=== PATIENT | female | born 1990 ===

== ENCOUNTER 2020-05-05 17:26 | Inpatient (IN) | payer OTHER ==
[2020-05-05] MEDS ORDERED: Carboprost Tromethamine 250 MCG/1 ML Amp IM PRN (19:08)
[2020-05-05] MEDS ORDERED: Famotidine 20 MG Tab PO PRN (19:08)
[2020-05-05] MEDS ORDERED: hydrOXYzine HCl 25 MG Tab PO PRN (19:08)
[2020-05-05] MEDS ORDERED: Sodium Chloride 0.9% 2.5 ML Syringe FLUSH PRN (19:08)
[2020-05-05] MEDS ORDERED: Methylergonovine 0.2 MG/1 ML Amp IM PRN (19:08)
[2020-05-05] MEDS ORDERED: Tranexamic Acid 1,000 MG in Sodium Chloride 0.9% 100 ML IV PRN (19:08)
[2020-05-05] MEDS ORDERED: Sodium Chloride 0.9% 10 ML SDV IV PRN (19:08)
[2020-05-05] MEDS ORDERED: Misoprostol 25 MCG (1/4 of 100 MCG) Tab VAG PRN ×2 (19:08)
[2020-05-05] MEDS ORDERED: Butorphanol 1 MG/ML SDV IVPUSH PRN (19:08)
[2020-05-05] MEDS ORDERED: Terbutaline 1 MG/ML SDV SUBCUT PRN (19:08)
[2020-05-05] MEDS ORDERED: Ondansetron 4 MG/2 ML SDV IVPUSH PRN (19:08)
[2020-05-05] MEDS ORDERED: Water For Irrigation,Sterile 1,000 ML Container IRR PRN (19:08)
[2020-05-05] MEDS ORDERED: Lidocaine 1% 50 ML MDV INJECT PRN (19:08)
[2020-05-05] MEDS ORDERED: Nalbuphine 10 MG/1 ML Vial IVPUSH PRN (19:08)
[2020-05-05] MEDS ORDERED: Sodium Chloride 0.9% 10 ML Syringe FLUSH PRN (19:08)
[2020-05-05] MEDS ORDERED: Misoprostol 200 MCG Tab PO PRN (19:08)
[2020-05-05] MEDS ORDERED: Misoprostol 25 MCG (1/4 of 100 MCG) Tab PO PRN ×2 (19:08)
[2020-05-05] MEDS ORDERED: Acetaminophen 325 MG Tab PO PRN (19:08)
[2020-05-05] MEDS ORDERED: Lactated Ringers 1,000 ML IV SCH (19:15)
[2020-05-05] MEDS ORDERED: Oxytocin/0.9 % Sodium Chloride 30 UNIT/500 ML BAG IV SCH ×2 (19:15)
--- NOTE | 2020-05-05 19:24 | PCM.LDHP ---
L&D History of Present Illness - General Date of Service: 05/05/20 Admit Problem/Dx: Patient Status Order with Admit Dx/Problem 05/05/20 17:36 Patient Status [ADT] Routine 05/05/20 19:09 Patient Status [ADT] Routine Admission Diagnosis/Problem Admission Diagnosis/Problem 05/05/20 19:19 30yo EDC 05/17/2020 38 2/7wks A+, RI, GBS neg. PIH with elevated BP and proteinuria. Source of Information: Patient History Limitations: Reports: No Limitations - History of Present Illness Improves with: Reports: None Worsens with: Reports: None Associated Symptoms: Reports: N - Related Data Allergies/Adverse Reactions: Allergies Allergy/AdvReac Type Severity Reaction Status Date / Time No Known Allergies Allergy Verified 04/27/20 15:33 Home Medications: Home Meds Acyclovir 400 mg PO DAILY 05/05/20 [History] Vits #93/Iron Fum/FA [ Formula Tablet] 1 each PO DAILY 05/05/20 [History] H&P Review of Systems - Review of Systems: Review Of Systems: See Below General: Reports: No Symptoms HEENT: Reports: No Symptoms Pulmonary: Reports: No Symptoms Cardiovascular: Reports: No Symptoms Gastrointestinal: Reports: No Symptoms Genitourinary: Reports: No Symptoms Musculoskeletal: Reports: No Symptoms Skin: Reports: No Symptoms Psychiatric: Reports: No Symptoms Neurological: Reports: No Symptoms Hematologic/Lymphatic: Reports: No Symptoms Immunologic: Reports: No Symptoms L&D Exam - Exam Exam: See Below - Vital Signs Weight: 91.626 kg - OB Specific Contraction Intensity: Mild Movement: Active Heart Tones: Present Heart Tones per Min: 140 Heart Rate (FHR) Variability: Moderate (6-25 bmp) Presentation: Vertex Estimated Weight: 3200 - Huerta Score Huerta Score Cervix Position: Posterior Huerta Score Consistency: Medium Huerta Score Effacement: 31-50% Huerta Score Dilation: Closed Huerta Score Infant's Station: -2 Huerta Score Total: 3 - Exam General: Alert, Oriented, Cooperative, Mild Distress HEENT: Hearing Intact Lungs: Clear to Auscultation, Normal Respiratory Effort. No: Decreased Breath Sounds Cardiovascular: Regular Rate, Regular Rhythm. No: Normal S1, Normal S2 GI/Abdominal Exam: Soft, Non-Tender Rectal Exam: Deferred Genitourinary: Normal external exam (Inspection for HSV and no leisions noted.). No: Cervical fluid, Vaginal bleeding Back Exam: Normal Inspection, Full Range of Motion Extremities: Normal Inspection, Normal Range of Motion, Non-Tender, Pedal Edema Skin: Warm, Dry, Intact Neurological: Cranial Nerves Intact, Reflexes Equal Bilateral, Strength Equal Bilateral, Normal Gait, Normal Speech, Normal Tone, Sensation Intact Psychiatric: Alert, Normal Affect, Normal Mood - Problem List (1) Supervision of normal IUP (intrauterine ) in multigravida SNOMED Code(s): 808187281, 771786028, 787728279 ICD Code: Z34.80 - ENCOUNTER FOR SUPRVSN OF NORMAL , UNSP TRIMESTER Status: Acute Priority: High Current Visit: Yes Qualifiers: Trimester: third trimester Qualified Code(s): Z34.83 - Encounter for supervision of other normal , third trimester (2) PIH ( induced hypertension), antepartum SNOMED Code(s): 78622586, 58696552 ICD Code: O13.9 - GESTATIONAL HTN W/O SIGNIFICANT PROTEINURIA, UNSP TRIMESTER Status: Acute Priority: High Current Visit: Yes Problem List Initiated/Reviewed/Updated: Yes Orders Last 24hrs: Active Orders 24 hr Category Date Time Status Patient Status [ADT] Routine ADT 05/05/20 17:36 Active Patient Status [ADT] Routine ADT 05/05/20 19:09 Ordered Bedrest Bathroom Privileges [RC] ASDIRECTED Care 05/05/20 19:09 Ordered Communication Order [RC] ASDIRECTED Care 05/05/20 19:09 Ordered Communication Order [RC] ASDIRECTED Care 05/05/20 19:09 Ordered Communication Order [RC] ASDIRECTED Care 05/05/20 19:09 Ordered Heart Tones [RC] INTERMITTENT Care 05/05/20 19:09 Ordered Non Stress Test [RC] PER UNIT ROUTINE Care 05/05/20 17:36 Active Non Stress Test [RC] PER UNIT ROUTINE Care 05/05/20 19:09 Ordered May Shower [RC] ASDIRECTED Care 05/05/20 19:09 Ordered Notify Provider [RC] PRN Care 05/05/20 19:09 Ordered Notify Provider [RC] PRN Care 05/05/20 19:09 Ordered Notify Provider [RC] PRN Care 05/05/20 19:09 Ordered Notify Provider [RC] STAT Care 05/05/20 19:09 Ordered Oxygen Therapy [RC] ASDIRECTED Care 05/05/20 19:09 Ordered Peripheral IV Care [RC] PRN Care 05/05/20 19:08 Ordered Up ad Hemalatha [RC] ASDIRECTED Care 05/05/20 17:36 Active Up ad Hemalatha [RC] ASDIRECTED Care 05/05/20 19:09 Ordered Vaginal Exam [RC] PRN Care 05/05/20 19:09 Ordered Vaginal Exam [RC] PRN Care 05/05/20 19:09 Ordered Vital Signs [RC] PER UNIT ROUTINE Care 05/05/20 17:36 Active Vital Signs [RC] PER UNIT ROUTINE Care 05/05/20 19:09 Ordered Vital Signs [RC] PER UNIT ROUTINE Care 05/05/20 19:09 Ordered Regular Diet [DIET] Diet 05/06/20 Breakfast Ordered CBC W/O DIFF,HEMOGRAM [HEME] Routine Lab 05/05/20 19:09 Ordered RPR (SYPHILIS SERO) W/ RFLX [REF] Routine Lab 05/05/20 19:09 Ordered TYPE AND SCREEN [BBK] Routine Lab 05/05/20 19:09 Ordered Acetaminophen [Tylenol] Med 05/05/20 19:08 Ordered 650 mg PO Q4H PRN Butorphanol [Stadol] Med 05/05/20 19:08 Ordered 1 mg IVPUSH Q1H PRN Carboprost Tromethamine [Hemabate DS] Med 05/05/20 19:08 Ordered 250 mcg IM ASDIRECTED PRN Famotidine [Pepcid] Med 05/05/20 19:08 Ordered 20 mg PO Q12H PRN Lactated Ringers @ 150 MLS/HR(1000ml) Med 05/05/20 19:15 Ordered Lactated Ringers [Ringers, Lactated] 1,000 ml IV ASDIRECTED Lidocaine 1% [Xylocaine 1%] Med 05/05/20 19:08 Ordered 50 ml INJECT ONETIME PRN Methylergonovine [Methergine] Med 05/05/20 19:08 Ordered 0.2 mg IM ASDIRECTED PRN Nalbuphine [Nubain] Med 05/05/20 19:08 Ordered 10 mg IVPUSH Q1H PRN Ondansetron [Zofran] Med 05/05/20 19:08 Ordered 4 mg IVPUSH Q4H PRN Oxytocin 30 Units in 0.9% Sodium Chloride @ 2 MUNITS/ Med 05/05/20 19:15 Ordered MIN(500ml) Oxytocin/0.9 % Sodium Chloride [Oxytocin 30 Unit/500 ML -NS] 30 unit in 500 ml IV TITRATE Oxytocin/0.9 % Sodium Chloride [Oxytocin 30 Unit/500 ML Med 05/05/20 19:15 Ordered -NS] 30 unit in 500 ml IV TITRATE Sodium Chloride 0.9% [Normal Saline] Med 05/05/20 19:08 Ordered 10 ml IV ASDIRECTED PRN Sodium Chloride 0.9% [Saline Flush] Med 05/05/20 19:08 Ordered 10 ml FLUSH ASDIRECTED PRN Sodium Chloride 0.9% [Saline Flush] Med 05/05/20 19:08 Ordered 2.5 ml FLUSH ASDIRECTED PRN Terbutaline [Brethine] Med 05/05/20 19:08 Ordered 0.25 mg SUBCUT ASDIRECTED PRN Tranexamic Acid [Cyklokapron] 1,000 mg Med 05/05/20 19:08 Ordered Sodium Chloride 0.9% [Normal Saline] 100 ml IV ONETIME Water For Irrigation,Sterile [Sterile Water for Med 05/05/20 19:08 Ordered Irrigation] 1,000 ml IRR ASDIRECTED PRN hydrOXYzine HCL [Atarax] Med 05/05/20 19:08 Ordered 50 mg PO Q6H PRN miSOPROStoL [Cytotec] Med 05/05/20 19:08 Ordered 200 mcg PO ONETIME PRN miSOPROStoL [Cytotec] Med 05/05/20 19:08 Ordered 25 mcg PO ONETIME PRN miSOPROStoL [Cytotec] Med 05/05/20 19:08 Ordered 25 mcg PO Q4H PRN miSOPROStoL [Cytotec] Med 05/05/20 19:08 Ordered 25 mcg VAG ONETIME PRN miSOPROStoL [Cytotec] Med 05/05/20 19:08 Ordered 25 mcg VAG Q4H PRN Scalp Electrode [WOMSER] Per Unit Routine Oth 05/05/20 19:09 Ordered Medication Administration Instruction [OM.PC] Q3H Oth 05/05/20 19:15 Ordered Peripheral IV Insertion Adult [OM.PC] Routine Oth 05/05/20 19:09 Ordered Resuscitation Status Routine Resus Stat 05/05/20 17:36 Ordered Medication Orders Acetaminophen (Tylenol) 650 mg PO Q4H PRN PRN Reason: mild pain and fever Butorphanol Tartrate (Stadol) 1 mg IVPUSH Q1H PRN PRN Reason: Pain Carboprost Tromethamine (Hemabate Ds) 250 mcg IM ASDIRECTED PRN PRN Reason: Post Hemorrhage Famotidine (Pepcid) 20 mg PO Q12H PRN PRN Reason: Heartburn Hydroxyzine HCl (Atarax) 50 mg PO Q6H PRN PRN Reason: Sleep Lactated Ringer's (Ringers, Lactated) 1,000 mls @ 150 mls/hr IV ASDIRECTED JOANA Oxytocin/Sodium Chloride (Oxytocin 30 Unit/500 Ml-Ns) 30 unit in 500 mls @ 2 mls/hr IV TITRATE JOANA Tranexamic Acid 1,000 mg/ (Sodium Chloride) 110 mls @ 660 mls/hr IV ONETIME PRN PRN Reason: Bleeding Oxytocin/Sodium Chloride (Oxytocin 30 Unit/500 Ml-Ns) 30 unit in 500 mls @ 2 mls/hr IV TITRATE JOANA; Protocol Lidocaine HCl (Xylocaine 1%) 50 ml INJECT ONETIME PRN PRN Reason: Laceration repair Methylergonovine Maleate (Methergine) 0.2 mg IM ASDIRECTED PRN PRN Reason: Post Hemorrhage Misoprostol (Cytotec) 200 mcg PO ONETIME PRN PRN Reason: Post Hemorrhage Misoprostol (Cytotec) 25 mcg PO ONETIME PRN PRN Reason: Cervical Ripening Misoprostol (Cytotec) 25 mcg VAG Q4H PRN PRN Reason: Cervical Ripening Misoprostol (Cytotec) 25 mcg VAG ONETIME PRN PRN Reason: Cervical Ripening Misoprostol (Cytotec) 25 mcg PO Q4H PRN PRN Reason: Cervical Ripening Nalbuphine HCl (Nubain) 10 mg IVPUSH Q1H PRN PRN Reason: Pain (severe 7-10) Ondansetron HCl (Zofran) 4 mg IVPUSH Q4H PRN PRN Reason: Nausea/Vomiting Sodium Chloride (Saline Flush) 10 ml FLUSH ASDIRECTED PRN PRN Reason: Keep Vein Open Sodium Chloride (Saline Flush) 2.5 ml FLUSH ASDIRECTED PRN PRN Reason: Keep Vein Open Sodium Chloride (Normal Saline) 10 ml IV ASDIRECTED PRN PRN Reason: IV Use Sterile Water (Sterile Water For Irrigation) 1,000 ml IRR ASDIRECTED PRN PRN Reason: delivery Terbutaline Sulfate (Brethine) 0.25 mg SUBCUT ASDIRECTED PRN PRN Reason: Tacysystole Assessment/Plan Comment:: IOL A: 30yo EDC 05/17/2020 38 2/7wks A+, RI, GBS neg. PIH with elevated BP and proteinuria. P: Admit, cytotec to pitocin, epidural prn, anticipate , Dr Herrera updated
[2020-05-05] MEDS ORDERED: Oxytocin/0.9 % Sodium Chloride 30 UNIT/500 ML BAG ONE (23:52)
--- NOTE | 2020-05-06 09:37 | PCM.PNLD ---
Labor Progress Note - VS & Meds Vital Signs: T 98.6 F, P 73, BP 143/88 (101) Active Medications: Current Medications Acetaminophen (Tylenol) 650 mg PO Q4H PRN PRN Reason: mild pain and fever Butorphanol Tartrate (Stadol) 1 mg IVPUSH Q1H PRN PRN Reason: Pain Carboprost Tromethamine (Hemabate Ds) 250 mcg IM ASDIRECTED PRN PRN Reason: Post Hemorrhage Famotidine (Pepcid) 20 mg PO Q12H PRN PRN Reason: Heartburn Hydroxyzine HCl (Atarax) 50 mg PO Q6H PRN PRN Reason: Sleep Lactated Ringer's (Ringers, Lactated) 1,000 mls @ 150 mls/hr IV ASDIRECTED JOANA Oxytocin/Sodium Chloride (Oxytocin 30 Unit/500 Ml-Ns) 30 unit in 500 mls @ 2 mls/hr IV TITRATE JOANA Tranexamic Acid 1,000 mg/ (Sodium Chloride) 110 mls @ 660 mls/hr IV ONETIME PRN PRN Reason: Bleeding Oxytocin/Sodium Chloride (Oxytocin 30 Unit/500 Ml-Ns) 30 unit in 500 mls @ 2 mls/hr IV TITRATE JOANA; Protocol Lidocaine HCl (Xylocaine 1%) 50 ml INJECT ONETIME PRN PRN Reason: Laceration repair Methylergonovine Maleate (Methergine) 0.2 mg IM ASDIRECTED PRN PRN Reason: Post Hemorrhage Misoprostol (Cytotec) 200 mcg PO ONETIME PRN PRN Reason: Post Hemorrhage Misoprostol (Cytotec) 25 mcg PO ONETIME PRN PRN Reason: Cervical Ripening Misoprostol (Cytotec) 25 mcg VAG Q4H PRN PRN Reason: Cervical Ripening Misoprostol (Cytotec) 25 mcg VAG ONETIME PRN PRN Reason: Cervical Ripening Misoprostol (Cytotec) 25 mcg PO Q4H PRN PRN Reason: Cervical Ripening Last Admin: 05/05/20 20:33 Dose: 25 mcg Documented by: Nalbuphine HCl (Nubain) 10 mg IVPUSH Q1H PRN PRN Reason: Pain (severe 7-10) Ondansetron HCl (Zofran) 4 mg IVPUSH Q4H PRN PRN Reason: Nausea/Vomiting Sodium Chloride (Saline Flush) 10 ml FLUSH ASDIRECTED PRN PRN Reason: Keep Vein Open Sodium Chloride (Saline Flush) 2.5 ml FLUSH ASDIRECTED PRN PRN Reason: Keep Vein Open Sodium Chloride (Normal Saline) 10 ml IV ASDIRECTED PRN PRN Reason: IV Use Sterile Water (Sterile Water For Irrigation) 1,000 ml IRR ASDIRECTED PRN PRN Reason: delivery Terbutaline Sulfate (Brethine) 0.25 mg SUBCUT ASDIRECTED PRN PRN Reason: Tacysystole Discontinued Medications Oxytocin/Sodium Chloride (Oxytocin 30 Unit/500 Ml-Ns) Confirm Administered Dose 30 unit in 500 mls @ as directed .ROUTE .[employer] ONE Stop: 05/05/20 23:53 - Uterine Contractions Uterine Monitoring Mode: External Rossiter Contraction Frequency (min): 4 Contraction Duration (sec): 80-160 Contraction Intensity: Strong Uterine Resting Tone: Soft - Monitoring Monitor Mode: External Ultrasound Heart Rate (FHR) Baseline: 140 Heart Rate (FHR) Variability: Moderate (6-25 bmp) Accelerations: Present, 15x15 Decelerations: Variable, Intermittent (<50% x 20 min) - Vaginal Exam Dilation (cm): 9 Effacement (Percent): 100 Station: 0 Cervical Position: Midposition Vaginal Exam Comment: Per RN SVE - Labor Progress (Free Text) Labor Progress: Katya is a 30 yo present for IOL due to new onset hypertension in with proteinuria and pitting edema BLE. A pos, RI, GBS neg. Hemodynamically stable, afebrile. FHR Cat II. AROM completed at 0800, clear. SVE 9/100/0 per RN upon entry into room, patient C/O intermittent rectal pressure. Patient breathing well through contractions, husbands is at the bedside for support. Patient utilizing non-pharmacologic methods for pain control, does not desire epidural at this time. Imminent anticipated, Dr. Herrera notified and agreeable with POC.
[2020-05-06] MEDS ORDERED: Lanolin 100% Cream 7 GM Tube TOP PRN (10:43)
[2020-05-06] MEDS ORDERED: Ibuprofen 800 MG Tab PO PRN (10:43)
[2020-05-06] MEDS ORDERED: Witch Hazel Medicated Pads 40/Jar TOP PRN (10:43)
[2020-05-06] MEDS ORDERED: Docusate Sodium 100 MG Cap PO PRN (10:43)
[2020-05-06] MEDS ORDERED: oxyCODONE 5 MG Tab PO PRN (10:43)
[2020-05-06] MEDS ORDERED: Bisacodyl 10 MG Supp RECTAL PRN (10:43)
[2020-05-06] MEDS ORDERED: Ibuprofen 400 MG Tab PO PRN (10:43)
[2020-05-06] MEDS ORDERED: Benzocaine/Menthol 20%-0.5% Spray 78 GM Cannister TOP PRN (10:43)
[2020-05-06] MEDS ORDERED: Acetaminophen 500 MG Tab PO PRN ×2 (10:43)
--- NOTE | 2020-05-06 10:54 | PCM.DEL ---
L & D Note - General Info Date of Service: 05/06/20 Mother's Due Date: 05/17/20 - Delivery Note Labor: Augmented by ARM Cervical Ripening Method: Misoprostil Delivery Outcome: Livebirth Delivery Method: Spontaneous Vaginal Delivery-Single Infant Delivery Mode: Spontaneous Presentation: Left Occiput Anterior (BRIDGER) Nuchal Cord: None Anesthesia Type: None Amniotic Fluid Description: Clear Episiotomy Type: None Laceration: None Placenta: Intact, Spontaneous Cord: 3 Vessels Estimated Blood Loss: 300 : Bulb Syringe, Stimulated, Warmed, [place] Used Score 1 min: 8 Score 5 min: 9 Second Stage Interventions: Reports: Encouragement Given, Pushing Effectively Delivery Comments (Free Text/Narrative):: Katya is a 30 yo at 38.3 weeks gestation (EDD05/17/2020) S/P uncomp licated of viable term NBF with spontaneous cries with warm/dry/stimulation. NBF placed low on maternal abdomen skin to skin. Umbilical cord left intact x 2 min until cessation of cord pulsing, cord clamped x 2, cut by FOB. Placenta delivered spontaneously 8 min S/P NBF, [place], intact, 3VC. Uterus firm@ U+1, small rubra lochia. Perineum intact. NBF resting skin to skin on maternal chest, mother and NBF stable. EBL 300. Induction Criteria - Huerta Score Huerta Score Dilation: 3-4 cm Huerta Score Effacement: 60-70% Huerta Score 's Station: -3 Huerta Score Consistency: Soft Huerta Score Cervix Position: Midposition Huerta Score Total: 7 Huerta Score Presenting Part: Reports: Cephalic - Induction Gestational Age >/= 39 wks: No Estimated Pelvis: Reports: Adequate Reassuring Monitoring Strip: Yes Absence of Tachy Systole: No - Augmentation Estimated Pelvis: Reports: Adequate Reassuring Monitoring Strip: Yes - General Info Date of Service: 05/06/20 Admission Dx/Problem (Free Text): Patient Status Order with Admit Dx/Problem 05/05/20 17:36 Patient Status [ADT] Routine 05/05/20 19:09 Patient Status [ADT] Routine Admission Diagnosis/Problem Admission Diagnosis/Problem 05/05/20 19:19 30yo EDC 05/17/2020 38 2/7wks A+, RI, GBS neg. PIH with elevated BP and proteinuria. Functional Status: Reports: Pain Controlled - Review of Systems General: Reports: No Symptoms HEENT: Reports: No Symptoms Pulmonary: Reports: No Symptoms Cardiovascular: Reports: No Symptoms Gastrointestinal: Reports: No Symptoms Genitourinary: Reports: Pain (Mild to moderate vaginal discomfort, uterine cramping.) Musculoskeletal: Reports: No Symptoms Skin: Reports: No Symptoms Neurological: Reports: No Symptoms Psychiatric: Reports: No Symptoms - Patient Data Vitals - Most Recent: T 98.6 F, HR 70, BP 146/88 (101) Weight - Most Recent: 202 lb Lab Results Last 24 Hours: Laboratory Results - last 24 hr 05/05/20 05/05/20 05/05/20 Range/Units 19:25 19:59 19:59 WBC 9.58 (4.0-11.0) K/uL RBC 3.71 L (4.30-5.90) M/uL Hgb 9.3 L (12.0-16.0) g/dL Hct 29.5 L (36.0-46.0) % MCV 79.5 L (80.0-98.0) fL MCH 25.1 L (27.0-32.0) pg MCHC 31.5 (31.0-37.0) g/dL RDW Std Deviation 40.2 (28.0-62.0) fl RDW Coeff of Vini 14 (11.0-15.0) % Plt Count 144 L (150-400) K/uL MPV 12.80 H (7.40-12.00) fL Nucleated RBC % 0.0 /100WBC Nucleated RBCs # 0 K/uL SARS-CoV-2 RNA (RT-PCR) NEGATIVE (NEGATIVE) Blood Type A POSITIVE Antibody Screen NEGATIVE Med Orders - Current: Current Medications Acetaminophen (Tylenol Extra Strength) 500 mg PO Q4H PRN PRN Reason: Pain Acetaminophen (Tylenol Extra Strength) 1,000 mg PO Q4H PRN PRN Reason: Pain Benzocaine/Menthol (Dermoplast Pain Relief 20%-0.5% [place]) 78 gm TOP ASDIRECTED PRN PRN Reason: Perineal Comfort Measure Bisacodyl (Dulcolax) 10 mg RECTAL ONETIME PRN PRN Reason: Constipation Docusate Sodium (Colace) 100 mg PO BID PRN PRN Reason: Constipation Emollient Ointment (Lansinoh Hpa) 0 gm TOP ASDIRECTED PRN PRN Reason: Sore Nipples Ibuprofen (Motrin) 400 mg PO Q4H PRN PRN Reason: Pain Ibuprofen (Motrin) 800 mg PO Q6H PRN PRN Reason: Pain Oxycodone HCl (Oxycodone) 5 mg PO Q2H PRN PRN Reason: Pain Polysaccharide Iron Complex (Ferrex 150) 150 mg PO BID [facility] Witch Ashwini (Tucks) 1 pad TOP ASDIRECTED PRN PRN Reason: comfort care Discontinued Medications Acetaminophen (Tylenol) 650 mg PO Q4H PRN PRN Reason: mild pain and fever Butorphanol Tartrate (Stadol) 1 mg IVPUSH Q1H PRN PRN Reason: Pain Carboprost Tromethamine (Hemabate Ds) 250 mcg IM ASDIRECTED PRN PRN Reason: Post Hemorrhage Famotidine (Pepcid) 20 mg PO Q12H PRN PRN Reason: Heartburn Hydroxyzine HCl (Atarax) 50 mg PO Q6H PRN PRN Reason: Sleep Lactated Ringer's (Ringers, Lactated) 1,000 mls @ 150 mls/hr IV ASDIRECTED [facility] Last Admin: 05/06/20 10:05 Dose: 500 mls/hr Documented by: Oxytocin/Sodium Chloride (Oxytocin 30 Unit/500 Ml-Ns) 30 unit in 500 mls @ 2 mls/hr IV TITRATE [facility] Last Admin: 05/06/20 10:07 Dose: 999 mls/hr Documented by: Tranexamic Acid 1,000 mg/ (Sodium Chloride) 110 mls @ 660 mls/hr IV ONETIME PRN PRN Reason: Bleeding Oxytocin/Sodium Chloride (Oxytocin 30 Unit/500 Ml-Ns) 30 unit in 500 mls @ 2 mls/hr IV TITRATE [facility]; Protocol Oxytocin/Sodium Chloride (Oxytocin 30 Unit/500 Ml-Ns) Confirm Administered Dose 30 unit in 500 mls @ as directed .ROUTE .[facility] ONE Stop: 05/05/20 23:53 Lidocaine HCl (Xylocaine 1%) 50 ml INJECT ONETIME PRN PRN Reason: Laceration repair Methylergonovine Maleate (Methergine) 0.2 mg IM ASDIRECTED PRN PRN Reason: Post Hemorrhage Misoprostol (Cytotec) 200 mcg PO ONETIME PRN PRN Reason: Post Hemorrhage Misoprostol (Cytotec) 25 mcg PO ONETIME PRN PRN Reason: Cervical Ripening Misoprostol (Cytotec) 25 mcg VAG Q4H PRN PRN Reason: Cervical Ripening Misoprostol (Cytotec) 25 mcg VAG ONETIME PRN PRN Reason: Cervical Ripening Misoprostol (Cytotec) 25 mcg PO Q4H PRN PRN Reason: Cervical Ripening Last Admin: 05/05/20 20:33 Dose: 25 mcg Documented by: Nalbuphine HCl (Nubain) 10 mg IVPUSH Q1H PRN PRN Reason: Pain (severe 7-10) Ondansetron HCl (Zofran) 4 mg IVPUSH Q4H PRN PRN Reason: Nausea/Vomiting Sodium Chloride (Saline Flush) 10 ml FLUSH ASDIRECTED PRN PRN Reason: Keep Vein Open Sodium Chloride (Saline Flush) 2.5 ml FLUSH ASDIRECTED PRN PRN Reason: Keep Vein Open Sodium Chloride (Normal Saline) 10 ml IV ASDIRECTED PRN PRN Reason: IV Use Sterile Water (Sterile Water For Irrigation) 1,000 ml IRR ASDIRECTED PRN PRN Reason: delivery Last Admin: 05/06/20 10:10 Dose: 1,000 ml Documented by: Terbutaline Sulfate (Brethine) 0.25 mg SUBCUT ASDIRECTED PRN PRN Reason: Tacysystole - Exam General: Alert, Oriented, Cooperative, No Acute Distress HEENT: Pupils Equal, Pupils Reactive, Mucous Membr. Moist/[place] Neck: Supple Lungs: Clear to Auscultation, Normal Respiratory Effort Cardiovascular: Regular Rate, Regular Rhythm GI/Abdominal Exam: Normal Bowel Sounds, Soft, Non-Tender, No Organomegaly, No Distention (Female) Exam: Normal External Exam, Enlarged Uterus (Uterus firm, U+1), Uterine Tenderness (Mild to moderate uterine cramping), Vaginal Bleeding (Small rubra lochia, no clots) Back Exam: Normal Inspection, Full Range of Motion Extremities: Normal Inspection, Normal Range of Motion, Non-Tender, Normal Capillary Refill, Pedal Edema (BLE) Skin: Warm, Dry, Intact Wound/Incisions: Healing Well Neurological: No New Focal Deficit Psy/Mental Status: Alert, Normal Affect, Normal Mood - Problem List & Annotations (1) (normal spontaneous vaginal delivery) SNOMED Code(s): 16544890, 023163031 Code(s): O80 - ENCOUNTER FOR FULL-TERM UNCOMPLICATED DELIVERY Status: Acute Priority: High Current Visit: Yes (2) Hypertension affecting , delivered, current hospitalization SNOMED Code(s): 65758236, 076971631 Code(s): O16.4 - UNSPECIFIED MATERNAL HYPERTENSION, COMPLICATING CHILDBIRTH Status: Acute Priority: High Current Visit: Yes (3) Lactating mother SNOMED Code(s): 161264045, 895209350 Code(s): Z39.1 - ENCOUNTER FOR CARE AND EXAMINATION OF LACTATING MOTHER Status: Acute Priority: High Current Visit: Yes - Problem List Review Problem List Initiated/Reviewed/Updated: Yes - My Orders Last 24 Hours: My Active Orders 05/06/20 10:43 Patient Status [ADT] Routine May Shower [RC] ASDIRECTED Up ad Hemalatha [RC] ASDIRECTED Vital Signs [RC] PER UNIT ROUTINE Acetaminophen [Tylenol Extra Strength] 1,000 mg PO Q4H PRN Acetaminophen [Tylenol Extra Strength] 500 mg PO Q4H PRN Benzocaine/Menthol [Dermoplast Pain Relief 20%-0.5% [place]] 78 gm TOP ASDIRECTED PRN Docusate Sodium [Colace] 100 mg PO BID PRN Ibuprofen [Motrin] 400 mg PO Q4H PRN Ibuprofen [Motrin] 800 mg PO Q6H PRN Lanolin [Lansinoh HPA] See Dose Instructions TOP ASDIRECTED PRN bisacodyL [Dulcolax] 10 mg RECTAL ONETIME PRN oxyCODONE 5 mg PO Q2H PRN witch Ashwini [Tucks] 1 pad TOP ASDIRECTED PRN Assess Lochia [WOMSER] Per Unit Routine Assess Uterine Involution [WOMSER] Per Unit Routine Ice Therapy [OM.PC] Per Unit Routine Perineal Care [OM.PC] Per Unit Routine Peripheral IV Discontinue [OM.PC] Routine Sitz Bath [OM.PC] Per Unit Routine Resuscitation Status Routine 05/06/20 10:44 Cooling Warming Measures [RC] ASDIRECTED 05/06/20 21:00 Iron Polysaccharides Complex [Ferrex 150] 150 mg PO BID 05/07/20 05:11 HEMOGLOBIN/HEMATOCRIT,HH [HEME] Timed - Plan Plan:: Uncomplicated of viable NBF at 38.3 weeks gestation S/P IOL due to new onset hypertension in with BLE edema and proteinuria. Proceed to POC, see new orders. Dr. Herrera notified and agreeable with POC.
[2020-05-06] MEDS: Iron Polysaccharides Complex 150 MG Cap PO SCH (21:10)
--- NOTE | 2020-05-07 08:47 | PCM.PNPP ---
- General Info Date of Service: 05/07/20 Admission Dx/Problem (Free Text): Patient Status Order with Admit Dx/Problem 05/05/20 17:36 Patient Status [ADT] Routine 05/05/20 19:09 Patient Status [ADT] Routine Admission Diagnosis/Problem Admission Diagnosis/Problem 05/05/20 19:19 30yo EDC 05/17/2020 38 2/7wks A+, RI, GBS neg. PIH with elevated BP and proteinuria. Functional Status: Reports: Pain Controlled - Review of Systems General: Reports: No Symptoms HEENT: Reports: Visual Changes ("I am seeing lines") Pulmonary: Reports: No Symptoms Cardiovascular: Reports: No Symptoms Gastrointestinal: Reports: No Symptoms Genitourinary: Reports: Pain (Mild to moderate uterine cramping with ), Other (Small to medium rubra lochia, no clots) Musculoskeletal: Reports: No Symptoms Skin: Reports: No Symptoms Neurological: Reports: No Symptoms Psychiatric: Reports: No Symptoms - General Info Date of Service: 05/07/20 - Patient Data Vital Signs - Most Recent: Last Vital Signs Temp 98.1 F 05/07/20 08:00 Pulse 80 05/07/20 08:00 Resp 16 05/07/20 08:00 BP 139/86 05/07/20 08:10 Pulse Ox 96 05/07/20 08:00 Weight - Most Recent: 202 lb Lab Results - Last 24 Hours: Laboratory Results - last 24 hr 05/07/20 Range/Units 05:58 Hgb 9.2 L (12.0-16.0) g/dL Hct 29.8 L (36.0-46.0) % Med Orders - Current: Current Medications Acetaminophen (Tylenol Extra Strength) 500 mg PO Q4H PRN PRN Reason: Pain Acetaminophen (Tylenol Extra Strength) 1,000 mg PO Q4H PRN PRN Reason: Pain Last Admin: 05/06/20 21:11 Dose: 1,000 mg Documented by: Benzocaine/Menthol (Dermoplast Pain Relief 20%-0.5% [place]) 78 gm TOP ASDIRECTED PRN PRN Reason: Perineal Comfort Measure Bisacodyl (Dulcolax) 10 mg RECTAL ONETIME PRN PRN Reason: Constipation Docusate Sodium (Colace) 100 mg PO BID PRN PRN Reason: Constipation Last Admin: 05/06/20 21:11 Dose: 100 mg Documented by: Emollient Ointment (Lansinoh Hpa) 0 gm TOP ASDIRECTED PRN PRN Reason: Sore Nipples Ibuprofen (Motrin) 400 mg PO Q4H PRN PRN Reason: Pain Ibuprofen (Motrin) 800 mg PO Q6H PRN PRN Reason: Pain Last Admin: 05/06/20 16:18 Dose: 800 mg Documented by: Nifedipine (Procardia Xl) 30 mg PO DAILY [facility] Last Admin: 05/07/20 08:10 Dose: 30 mg Documented by: Oxycodone HCl (Oxycodone) 5 mg PO Q2H PRN PRN Reason: Pain Polysaccharide Iron Complex (Ferrex 150) 150 mg PO BID [facility] Last Admin: 05/06/20 21:10 Dose: 150 mg Documented by: Yi Maradiaga ([facility]) 1 pad TOP ASDIRECTED PRN PRN Reason: comfort care Last Admin: 05/06/20 21:11 Dose: 1 pack Documented by: Discontinued Medications Acetaminophen (Tylenol) 650 mg PO Q4H PRN PRN Reason: mild pain and fever Butorphanol Tartrate (Stadol) 1 mg IVPUSH Q1H PRN PRN Reason: Pain Carboprost Tromethamine (Hemabate Ds) 250 mcg IM ASDIRECTED PRN PRN Reason: Post Hemorrhage Famotidine (Pepcid) 20 mg PO Q12H PRN PRN Reason: Heartburn Hydroxyzine HCl (Atarax) 50 mg PO Q6H PRN PRN Reason: Sleep Lactated Ringer's (Ringers, Lactated) 1,000 mls @ 150 mls/hr IV ASDIRECTED [facility] Last Admin: 05/06/20 10:05 Dose: 500 mls/hr Documented by: Oxytocin/Sodium Chloride (Oxytocin 30 Unit/500 Ml-Ns) 30 unit in 500 mls @ 2 mls/hr IV TITRATE [facility] Last Admin: 05/06/20 10:07 Dose: 999 mls/hr Documented by: Tranexamic Acid 1,000 mg/ (Sodium Chloride) 110 mls @ 660 mls/hr IV ONETIME PRN PRN Reason: Bleeding Oxytocin/Sodium Chloride (Oxytocin 30 Unit/500 Ml-Ns) 30 unit in 500 mls @ 2 mls/hr IV TITRATE JOANA; Protocol Oxytocin/Sodium Chloride (Oxytocin 30 Unit/500 Ml-Ns) Confirm Administered Dose 30 unit in 500 mls @ as directed .ROUTE .STK-MED ONE Stop: 05/05/20 23:53 Lidocaine HCl (Xylocaine 1%) 50 ml INJECT ONETIME PRN PRN Reason: Laceration repair Methylergonovine Maleate (Methergine) 0.2 mg IM ASDIRECTED PRN PRN Reason: Post Hemorrhage Misoprostol (Cytotec) 200 mcg PO ONETIME PRN PRN Reason: Post Hemorrhage Misoprostol (Cytotec) 25 mcg PO ONETIME PRN PRN Reason: Cervical Ripening Misoprostol (Cytotec) 25 mcg VAG Q4H PRN PRN Reason: Cervical Ripening Misoprostol (Cytotec) 25 mcg VAG ONETIME PRN PRN Reason: Cervical Ripening Misoprostol (Cytotec) 25 mcg PO Q4H PRN PRN Reason: Cervical Ripening Last Admin: 05/05/20 20:33 Dose: 25 mcg Documented by: Nalbuphine HCl (Nubain) 10 mg IVPUSH Q1H PRN PRN Reason: Pain (severe 7-10) Ondansetron HCl (Zofran) 4 mg IVPUSH Q4H PRN PRN Reason: Nausea/Vomiting Sodium Chloride (Saline Flush) 10 ml FLUSH ASDIRECTED PRN PRN Reason: Keep Vein Open Sodium Chloride (Saline Flush) 2.5 ml FLUSH ASDIRECTED PRN PRN Reason: Keep Vein Open Sodium Chloride (Normal Saline) 10 ml IV ASDIRECTED PRN PRN Reason: IV Use Sterile Water (Sterile Water For Irrigation) 1,000 ml IRR ASDIRECTED PRN PRN Reason: delivery Last Admin: 05/06/20 10:10 Dose: 1,000 ml Documented by: Terbutaline Sulfate (Brethine) 0.25 mg SUBCUT ASDIRECTED PRN PRN Reason: Tacysystole - Infant Interaction Disposition, : in Room with Family Interaction: Other (see below) (In bassinet) Infant Feeding: Attempted ; Nursed Fair/Poor, Bottle Fed Support Person: - Recovery Exam Fundal Tone: Firm Fundal Level: At Umbilicus Fundal Placement: Midline Lochia Amount: Small Lochia Color: Rubra/Red Perineum Description: Intact, Minimal Bruising/Swelling Episiotomy/Laceration: None Bladder Status: Voiding Urinary Elimination: Voided - Exam General: Alert, Oriented, Cooperative, No Acute Distress HEENT: Pupils Equal, Pupils Reactive, Mucous Membr. Moist/[place] Neck: Supple Lungs: Clear to Auscultation, Normal Respiratory Effort Cardiovascular: Regular Rate, Regular Rhythm GI/Abdominal Exam: Normal Bowel Sounds, Soft, Non-Tender, No Organomegaly, No Distention Extremities: Normal Inspection, Normal Range of Motion, Non-Tender, Normal Capillary Refill, Pedal Edema (Non-pitting BLE edema) Skin: Warm, Dry, Intact Neurological: No New Focal Deficit Psy/Mental Status: Alert, Normal Affect, Normal Mood - Problem List & Annotations (1) (normal spontaneous vaginal delivery) SNOMED Code(s): 35474161, 293592766 Code(s): O80 - ENCOUNTER FOR FULL-TERM UNCOMPLICATED DELIVERY Status: Acute Priority: High Current Visit: Yes (2) Hypertension affecting , delivered, current hospitalization SNOMED Code(s): 92920970, 314475700 Code(s): O16.4 - UNSPECIFIED MATERNAL HYPERTENSION, COMPLICATING CHILDBIRTH Status: Acute Priority: High Current Visit: Yes (3) Lactating mother SNOMED Code(s): 528508108, 096235221 Code(s): Z39.1 - ENCOUNTER FOR CARE AND EXAMINATION OF LACTATING MOTHER Status: Acute Priority: High Current Visit: Yes - Problem List Review Problem List Initiated/Reviewed/Updated: Yes - My Orders Last 24 Hours: My Active Orders 05/06/20 10:43 Patient Status [ADT] Routine May Shower [RC] ASDIRECTED Up ad Hemalatha [RC] ASDIRECTED Vital Signs [RC] PER UNIT ROUTINE Acetaminophen [Tylenol Extra Strength] 1,000 mg PO Q4H PRN Acetaminophen [Tylenol Extra Strength] 500 mg PO Q4H PRN Benzocaine/Menthol [Dermoplast Pain Relief 20%-0.5% [place]] 78 gm TOP ASDIRECTED PRN Docusate Sodium [Colace] 100 mg PO BID PRN Ibuprofen [Motrin] 400 mg PO Q4H PRN Ibuprofen [Motrin] 800 mg PO Q6H PRN Lanolin [Lansinoh HPA] See Dose Instructions TOP ASDIRECTED PRN bisacodyL [Dulcolax] 10 mg RECTAL ONETIME PRN oxyCODONE 5 mg PO Q2H PRN witch Inocencia [Tucks] 1 pad TOP ASDIRECTED PRN Assess Lochia [WOMSER] Per Unit Routine Assess Uterine Involution [WOMSER] Per Unit Routine Ice Therapy [OM.PC] Per Unit Routine Perineal Care [OM.PC] Per Unit Routine Peripheral IV Discontinue [OM.PC] Routine Sitz Bath [OM.PC] Per Unit Routine Resuscitation Status Routine 05/06/20 10:44 Cooling Warming Measures [RC] ASDIRECTED 05/06/20 21:00 Iron Polysaccharides Complex [Ferrex 150] 150 mg PO BID 05/07/20 09:00 NIFEdipine [Procardia XL] 30 mg PO DAILY - Assessment Assessment:: Katya is a 30 yo PPD1 S/P uncomplicated to term NBF. A pos, RI, GBS neg. Hypertensive, hemodynamically stable, afebrile. Patient C/O intermittent visual changes "I am seeing lines" since last night, but reports she did not notify RN. Patient educated on importance of communicating problems and discussed warning S/Ss, no questions, comments, or concerns at this time. Patient is pumping and supplementing well, resting comfortably in bed with in bassinet Patient reports she is eating, voiding, ambulating independently and without difficulty. Patient denies any problems or concerns at this time except mild-moderate intermittent uterine cramping relieved with Tylenol and Ibuprofen. Patient reports small rubra lochia with no clots. Patient verbalizes her readiness to be discharged home. - Plan Plan:: Continue POC S/P vaginal . Start 30 mg Procardia XL this am, continue to monitor BP per orders and notify provider of findings. Plan D/C home this pm or tomorrow am pending BP trends with Procardia therapy. Upon D/C, plan to F/U in office [address] days for BP check. Dr[address] Herrera notified and agreeable to POC.
[2020-05-07] MEDS ORDERED: NIFEdipine 30 MG Tab.ER PO SCH (09:00)
[2020-05-07] MEDS: Iron Polysaccharides Complex 150 MG Cap PO SCH (09:28)
--- NOTE | 2020-05-07 13:24 | PCM.DCSUM1 ---
Discharge Summary - Hospital Course Free Text/Narrative:: Discharge home with baby. Follow up in the clinic in one week for a blood pressure check. Follow up again in the clinic in 6 weeks for routine visit. Diagnosis: Stroke: No Modified [place] Scale: No Symptoms at All Modified [place] Scale Score: 0 - Discharge Data Discharge Date: 05/07/20 Discharge Disposition: Home, Self-Care 01 Condition: Good - Referral to Home Health Primary Care Physician: PCP None - Discharge Diagnosis/Problem(s) (1) Hypertension affecting , delivered, current hospitalization SNOMED Code(s): 10506610, 997669699 ICD Code: O16.4 - UNSPECIFIED MATERNAL HYPERTENSION, COMPLICATING CHILDBIRTH Status: Acute Priority: High Current Visit: Yes (2) (normal spontaneous vaginal delivery) SNOMED Code(s): 87682992, 852296534 ICD Code: O80 - ENCOUNTER FOR FULL-TERM UNCOMPLICATED DELIVERY Status: Acute Priority: High Current Visit: Yes - Patient Instructions Diet: Regular Diet as Tolerated, Drink 8-10+ Glasses/Day Activity: As Tolerated, No Strenuous Activities, Rest and Relax Today Driving: May Drive Today Showering/Bathing: May Shower Notify Provider of: Fever, Increased Pain, Swelling and Redness, Drainage, Nausea and/or Vomiting - Discharge Plan *PRESCRIPTION DRUG MONITORING PROGRAM REVIEWED*: Not Applicable *COPY OF PRESCRIPTION DRUG MONITORING REPORT IN PATIENT JOSE ANGEL: Not Applicable Prescriptions/Med Rec: Ibuprofen [Motrin] 800 mg PO Q6H PRN 2 Days #90 tablet PRN Reason: Pain NIFEdipine [Procardia XL] 30 mg PO DAILY #30 tab.er Home Medications: Home Meds Acyclovir 400 mg PO DAILY 05/05/20 [History] Vits #93/Iron Fum/FA [ Formula Tablet] 1 each PO DAILY 05/05/20 [History] Ibuprofen [Motrin] 800 mg PO Q6H PRN 2 Days #90 tablet 05/07/20 [Rx] NIFEdipine [Procardia XL] 30 mg PO DAILY #30 tab.er 05/07/20 [Rx] Oxygen Therapy Mode: Room Air Referrals: [facility] [Outside] Amador Herrera MD [Physician] - 06/18/20 3:30 pm Patience Mares CNM [Mid-] - 05/14/20 1:45 pm (Blood Pressure Check) - Discharge Summary/Plan Comment DC Time >30 min.: Yes - General Info Date of Service: 05/07/20 Admission Dx/Problem (Free Text: Patient Status Order with Admit Dx/Problem 05/05/20 17:36 Patient Status [ADT] Routine 05/05/20 19:09 Patient Status [ADT] Routine Admission Diagnosis/Problem Admission Diagnosis/Problem 05/05/20 19:19 30yo EDC 05/17/2020 38 2/7wks A+, RI, GBS neg. PIH with elevated BP and proteinuria. Functional Status: Reports: Pain Controlled, Tolerating Diet, Ambulating, Urinating - Review of Systems General: Reports: No Symptoms HEENT: Reports: No Symptoms Pulmonary: Reports: No Symptoms Cardiovascular: Reports: No Symptoms Gastrointestinal: Reports: No Symptoms Genitourinary: Reports: No Symptoms Musculoskeletal: Reports: No Symptoms Skin: Reports: No Symptoms Neurological: Reports: No Symptoms Psychiatric: Reports: No Symptoms - Patient Data Vitals - Most Recent: Last Vital Signs Temp 98.1 F 05/07/20 08:00 Pulse 80 05/07/20 08:00 Resp 16 05/07/20 08:00 BP 139/86 05/07/20 08:10 Pulse Ox 96 05/07/20 08:00 Weight - Most Recent: 202 lb Lab Results - Last 24 hrs: Laboratory Results - last 24 hr 05/05/20 05/07/20 Range/Units 19:59 05:58 Hgb 9.2 L (12.0-16.0) g/dL Hct 29.8 L (36.0-46.0) % RPR Non-Reac (Non-Reac) Med Orders - Current: Current Medications Acetaminophen (Tylenol Extra Strength) 500 mg PO Q4H PRN PRN Reason: Pain Acetaminophen (Tylenol Extra Strength) 1,000 mg PO Q4H PRN PRN Reason: Pain Last Admin: 05/06/20 21:11 Dose: 1,000 mg Documented by: Benzocaine/Menthol (Dermoplast Pain Relief 20%-0.5% [place]) 78 gm TOP ASDIRECTED PRN PRN Reason: Perineal Comfort Measure Bisacodyl (Dulcolax) 10 mg RECTAL ONETIME PRN PRN Reason: Constipation Docusate Sodium (Colace) 100 mg PO BID PRN PRN Reason: Constipation Last Admin: 05/06/20 21:11 Dose: 100 mg Documented by: Emollient Ointment (Lansinoh Hpa) 0 gm TOP ASDIRECTED PRN PRN Reason: Sore Nipples Ibuprofen (Motrin) 400 mg PO Q4H PRN PRN Reason: Pain Ibuprofen (Motrin) 800 mg PO Q6H PRN PRN Reason: Pain Last Admin: 05/06/20 16:18 Dose: 800 mg Documented by: Nifedipine (Procardia Xl) 30 mg PO DAILY [facility] Last Admin: 05/07/20 08:10 Dose: 30 mg Documented by: Oxycodone HCl (Oxycodone) 5 mg PO Q2H PRN PRN Reason: Pain Polysaccharide Iron Complex (Ferrex 150) 150 mg PO BID [facility] Last Admin: 05/07/20 09:28 Dose: 150 mg Documented by: Yi Maradiaga ([place]) 1 pad TOP ASDIRECTED PRN PRN Reason: comfort care Last Admin: 05/06/20 21:11 Dose: 1 pack Documented by: Discontinued Medications Acetaminophen (Tylenol) 650 mg PO Q4H PRN PRN Reason: mild pain and fever Butorphanol Tartrate (Stadol) 1 mg IVPUSH Q1H PRN PRN Reason: Pain Carboprost Tromethamine (Hemabate Ds) 250 mcg IM ASDIRECTED PRN PRN Reason: Post Hemorrhage Famotidine (Pepcid) 20 mg PO Q12H PRN PRN Reason: Heartburn Hydroxyzine HCl (Atarax) 50 mg PO Q6H PRN PRN Reason: Sleep Lactated Ringer's (Ringers, Lactated) 1,000 mls @ 150 mls/hr IV ASDIRECTED [facility] Last Admin: 05/06/20 10:05 Dose: 500 mls/hr Documented by: Oxytocin/Sodium Chloride (Oxytocin 30 Unit/500 Ml-Ns) 30 unit in 500 mls @ 2 mls/hr IV TITRATE [facility] Last Admin: 05/06/20 10:07 Dose: 999 mls/hr Documented by: Tranexamic Acid 1,000 mg/ (Sodium Chloride) 110 mls @ 660 mls/hr IV ONETIME PRN PRN Reason: Bleeding Oxytocin/Sodium Chloride (Oxytocin 30 Unit/500 Ml-Ns) 30 unit in 500 mls @ 2 mls/hr IV TITRATE JOANA; Protocol Oxytocin/Sodium Chloride (Oxytocin 30 Unit/500 Ml-Ns) Confirm Administered Dose 30 unit in 500 mls @ as directed .ROUTE .STK-MED ONE Stop: 05/05/20 23:53 Lidocaine HCl (Xylocaine 1%) 50 ml INJECT ONETIME PRN PRN Reason: Laceration repair Methylergonovine Maleate (Methergine) 0.2 mg IM ASDIRECTED PRN PRN Reason: Post Hemorrhage Misoprostol (Cytotec) 200 mcg PO ONETIME PRN PRN Reason: Post Hemorrhage Misoprostol (Cytotec) 25 mcg PO ONETIME PRN PRN Reason: Cervical Ripening Misoprostol (Cytotec) 25 mcg VAG Q4H PRN PRN Reason: Cervical Ripening Misoprostol (Cytotec) 25 mcg VAG ONETIME PRN PRN Reason: Cervical Ripening Misoprostol (Cytotec) 25 mcg PO Q4H PRN PRN Reason: Cervical Ripening Last Admin: 05/05/20 20:33 Dose: 25 mcg Documented by: Nalbuphine HCl (Nubain) 10 mg IVPUSH Q1H PRN PRN Reason: Pain (severe 7-10) Ondansetron HCl (Zofran) 4 mg IVPUSH Q4H PRN PRN Reason: Nausea/Vomiting Sodium Chloride (Saline Flush) 10 ml FLUSH ASDIRECTED PRN PRN Reason: Keep Vein Open Sodium Chloride (Saline Flush) 2.5 ml FLUSH ASDIRECTED PRN PRN Reason: Keep Vein Open Sodium Chloride (Normal Saline) 10 ml IV ASDIRECTED PRN PRN Reason: IV Use Sterile Water (Sterile Water For Irrigation) 1,000 ml IRR ASDIRECTED PRN PRN Reason: delivery Last Admin: 05/06/20 10:10 Dose: 1,000 ml Documented by: Terbutaline Sulfate (Brethine) 0.25 mg SUBCUT ASDIRECTED PRN PRN Reason: Tacysystole - Exam General: Reports: Alert, Oriented, Cooperative, No Acute Distress Lungs: Reports: Clear to Auscultation, Normal Respiratory Effort Cardiovascular: Reports: Regular Rate, Regular Rhythm GI/Abdominal Exam: Soft, Non-Tender (Female) Exam: Deferred Rectal (Female) Exam: Deferred Back Exam: Reports: Normal Inspection, Full Range of Motion Extremities: Normal Inspection, Normal Range of Motion, Non-Tender, Normal Capillary Refill Skin: Reports: Warm, Dry, Intact Neurological: Reports: No New Focal Deficit, Normal Gait, Normal Speech, Normal Tone, Sensation Intact Psy/Mental Status: Reports: Alert, Normal Affect, Normal Mood
== END 2020-05-07 14:20 | disposition home or self-care (01) | DRG 807 ==
LOC: MW.OBCHECK 17:26 → MW.OB 17:29 → MW.OBCHECK 19:09 → OBSVTOIN 05-06 10:43 → MW.OB 05-06 14:52
PROVIDERS: ADMIT Obstetrics & Gynecology; ATTEND Obstetrics & Gynecology
PROC: 10E0XZZ Delivery of Products of Conception, External Approach (ICD-10-PCS; principal; 2020-05-06)
PROC: 10907ZC Drainage of Amniotic Fluid, Therapeutic from Products of Conception, Via Natural or Artificial Opening (ICD-10-PCS; 2020-05-06)
PROC: 3E0P7VZ Introduction of Hormone into Female Reproductive, Via Natural or Artificial Opening (ICD-10-PCS; 2020-05-06)
DX: O13.4 Gestational [pregnancy-induced] hypertension without significant proteinuria, complicating childbirth (principal); Z37.0 Single live birth; Z3A.38 38 weeks gestation of pregnancy
CPT/HCPCS: 36415; 59025; 59409; 85014; 85018; 85027; 86592; 86593; 86850; 86900; 86901; A9270-GY; J2590; J7120; U0002